=== PATIENT | male | born 1975 | race Caucasian/White ===

== ENCOUNTER → 2017-03-12 | Outpatient (CLI) | payer MEDICARE ==
[~2017-03-12] MED LIST: ADVAIR 500/501 DISK IH; LOTREL 10/21 CAPSULE PO; ULTRAM50 MG PO; VENTOLIN HFA18 GM IH
== END ==
LOC: PICC 09:00
DX: B99.9 Unspecified infectious disease (principal)
CPT/HCPCS: C1753

== ENCOUNTER 2018-03-17 17:38 | Inpatient (IN) | payer OTHER ==
[~2018-03-17] VITALS: Ht 180.3 cm; Wt 129.7 kg
[2018-03-17 18:33] LABS: HEMATOCRIT 48.4 % (38.0-50.0); HEMOGLOBIN 14.7 G/DL (12.5-16.6); MCH 24.4 PG (29.0-34.0); MCHC 30.4 G/DL (30.0-36.0); MCV 80.3 FL (86-99); PLATELET COUNT 475 K/uL (156-360); RBC DIS.WIDTH-SD 43.1 % (39-53); RED BLOOD COUNT 6.03 M/uL (4.00-5.50); WHITE BLOOD COUNT 12.4 K/uL (4.1-10.2)
[2018-03-17 18:41] LABS: ALBUMIN 4.3 g/dL (3.2-4.8)
[2018-03-17 18:42] LABS: CHLORIDE 104 mEq/L (99-109); POTASSIUM 4.3 mEq/L (3.7-5.4); SODIUM 138 mEq/L (136-147)
[2018-03-17 18:44] LABS: GLUCOSE 96 mg/dL (70-99); TOTAL PROTEIN 8.1 g/dL (6.4-8.3)
[2018-03-17 18:46] LABS: TOTAL BILIRUBIN 0.3 mg/dL (0.0-1.0)
[2018-03-17 18:47] LABS: ALKALINE PHOSPHATASE 102 IU/L (3-129)
[2018-03-17 18:48] LABS: GFR ESTIMATE (CALCULATED) > 59 mL/min/ (58.99-99999)
[2018-03-17 18:49] LABS: AST (GOT) 23 IU/L (2-34); UREA NITROGEN (BUN) 15 mg/dL (9-23)
[2018-03-17 18:51] LABS: ALT (GPT) 23 IU/L (3-49)
[2018-03-17 19:01] LABS: APPEARANCE CLEAR ((CLEAR)); BILIRUBIN NEGATIVE; BLOOD NEGATIVE; COLOR YELLOW ((YELLOW)); GLUCOSE (STRIP) NEGATIVE; KETONES 5; LEUKOCYTES NEGATIVE; NITRITE NEGATIVE; PROTEIN (STRIP) 30; SPECIFIC GRAVITY 1.026 (1.000-1.030); UCUL ADDED? NO; UROBILINOGEN 0.2 MG/DL (0.2-1.0)
[2018-03-17 20:58] LABS: LIPASE 237 U/L (1.0-51.0)
[2018-03-17 21:49] LABS: EOSINOPHIL (%) 3.5 % (0-5); LYMPHOCYTE (%) 27.8 % (15-42); NEUTROPHIL (%) 60.3 % (45-76)
[2018-03-17 21:50] LABS: BASOPHIL (%) 0.8 % (0-1); IMMATURE GRANULOCYTE (%) 0.3 % (0.0-0.7); MONOCYTE (%) 7.3 % (3-12)
[2018-03-17 21:52] LABS: LYMPHOCYTE COUNT 3.4 K/uL (1.0-2.8)
[2018-03-17 21:53] LABS: BASOPHIL COUNT 0.1 K/uL (0-0.1); EOSINOPHIL COUNT 0.4 K/uL (0-0.3); MONOCYTE COUNT 0.9 K/uL (0-0.8); NEUTROPHIL COUNT 7.4 K/uL (1.8-6.4)
[2018-03-18] MEDS ORDERED: LYRICA75 MG PO (01:18)
[2018-03-18] MEDS ORDERED: AMLODIPINE BESY10 MG PO (01:18)
[2018-03-18] MEDS ORDERED: SERTRALINE HCL100 MG PO (01:19)
[2018-03-18] MEDS ORDERED: LORAZEPAM1 MG PO (01:21)
[2018-03-18] MEDS ORDERED: METOPROLOL TART25 MG PO (01:22)
[2018-03-18] MEDS ORDERED: OXYCODONE-APAP1 EACH PO (01:22)
[2018-03-18] MEDS ORDERED: ASMANEX HFA13 GM IH (01:22)
[2018-03-18] MEDS ORDERED: LO-DOSE ASPIRIN81 M2 PO (01:23)
[2018-03-18] MEDS ORDERED: MEN'S MULTI-VI1 EACH PO (01:24)
[2018-03-18 07:15] LABS: BASOPHIL (%) 0.9 % (0-1); BASOPHIL COUNT 0.1 K/uL (0-0.1); EOSINOPHIL (%) 5.8 % (0-5); EOSINOPHIL COUNT 0.5 K/uL (0-0.3); HEMATOCRIT 45.7 % (38.0-50.0); IMMATURE GRANULOCYTE (%) 0.5 % (0.0-0.7); LYMPHOCYTE (%) 33.5 % (15-42); LYMPHOCYTE COUNT 2.9 K/uL (1.0-2.8); MCH 24.3 PG (29.0-34.0); MCHC 30.6 G/DL (30.0-36.0); MCV 79.3 FL (86-99); MONOCYTE (%) 9.8 % (3-12); MONOCYTE COUNT 0.8 K/uL (0-0.8); NEUTROPHIL (%) 49.5 % (45-76); NEUTROPHIL COUNT 4.2 K/uL (1.8-6.4); RBC DIS.WIDTH-CV 15.1 % (11.8-14.6); RBC DIS.WIDTH-SD 43.3 % (39-53); RED BLOOD COUNT 5.76 M/uL (4.00-5.50); WHITE BLOOD COUNT 8.5 K/uL (4.1-10.2)
[2018-03-18 08:06] LABS: PLAT.SUFFICIENCY ADEQUATE; PLATELET COUNT 211 K/uL (156-360)
[2018-03-18 08:08] LABS: CHLORIDE 107 MEQ/L (99-109); GFR ESTIMATE (CALCULATED) > 59 mL/min/ (58.99-99999); GLUCOSE 97 mg/dL (70-99); POTASSIUM 4.1 MEQ/L (3.7-5.4); SODIUM 138 MEQ/L (136-147); UREA NITROGEN (BUN) 13 mg/dL (9-23)
[2018-03-18 11:34] LABS: ABS NEUTROPHIL COUNT 7.3; ANISOCYTOSIS NONE SEEN; ATYPICAL LYMPHOCYTE 13.4 %; BAND NEUTROPHILS 0.9 % (0-8.0); BASOPHILS 1.8 %; EOSINOPHIL ABS CT 0.7; EOSINOPHILS 5.3 % (0-5.0); LYMPHOCYTES 15.2 % (15.0-45.0); MONOCYTES 5.4 % (0-9.0); PLAT.SUFFICIENCY ADEQUATE; SMUDGE CELLS 9.8
[2018-03-18 14:20] VITALS: BP 141/94
[2018-03-18 17:19] VITALS: BP 134/74
[2018-03-18 20:40] VITALS: BP 153/87
[2018-03-19 00:53] VITALS: BP 132/69
[2018-03-19 04:38] VITALS: BP 137/87
[2018-03-19 05:40] LABS: BASOPHIL (%) 0.9 % (0-1); BASOPHIL COUNT 0.1 K/uL (0-0.1); EOSINOPHIL (%) 5.4 % (0-5); EOSINOPHIL COUNT 0.4 K/uL (0-0.3); HEMATOCRIT 45.3 % (38.0-50.0); HEMOGLOBIN 13.7 G/DL (12.5-16.6); IMMATURE GRANULOCYTE (%) 0.3 % (0.0-0.7); LYMPHOCYTE (%) 26.6 % (15-42); LYMPHOCYTE COUNT 2.1 K/uL (1.0-2.8); MCH 24.2 PG (29.0-34.0); MCHC 30.2 G/DL (30.0-36.0); MCV 80.2 FL (86-99); MONOCYTE (%) 8.7 % (3-12); MONOCYTE COUNT 0.7 K/uL (0-0.8); NEUTROPHIL (%) 58.1 % (45-76); NEUTROPHIL COUNT 4.6 K/uL (1.8-6.4); RBC DIS.WIDTH-CV 14.6 % (11.8-14.6); RBC DIS.WIDTH-SD 43.1 % (39-53); RED BLOOD COUNT 5.65 M/uL (4.00-5.50); WHITE BLOOD COUNT 7.9 K/uL (4.1-10.2)
[2018-03-19 05:41] LABS: PLATELET COUNT 382 K/uL (156-360)
[2018-03-19 07:06] VITALS: BP 136/78
[2018-03-19 11:22] VITALS: BP 157/77
[2018-03-19 16:50] VITALS: BP 118/59
[2018-03-19 20:00] VITALS: BP 175/94
[2018-03-20] VITALS: BP 123/69
[2018-03-20 07:50] VITALS: BP 124/61
[2018-03-20 07:52] LABS: HEMATOCRIT 47.8 % (38.0-50.0); HEMOGLOBIN 14.3 G/DL (12.5-16.6); MCH 23.8 PG (29.0-34.0); MCHC 29.9 G/DL (30.0-36.0); MCV 79.7 FL (86-99); PLATELET COUNT 415 K/uL (156-360); RBC DIS.WIDTH-CV 14.7 % (11.8-14.6); RBC DIS.WIDTH-SD 42.8 % (39-53); WHITE BLOOD COUNT 6.2 K/uL (4.1-10.2)
[2018-03-20] MEDS ORDERED: SUCRALFATE1 GM PO (11:20)
[2018-03-20] MEDS ORDERED: PROTONIX40 MG PO (11:20)
== END 2018-03-20 12:07 | disposition home or self-care (01) | DRG 383 ==
LOC: EME 17:38 → EDOF 03-18 01:03 → 5SOUTH 03-18 01:03 → ENRESERV 03-18 01:06 → 5SOUTH 03-18 14:11 → ENPENDDIS 03-20 11:37 → 5SOUTH 03-20 12:07
PROVIDERS: Hospitalist; Internal Medicine Gastroenterology; Physician Assistant; Student in an Organized Health Care Education/Training Program
PROC: 0DB68ZX Excision of Stomach, Via Natural or Artificial Opening Endoscopic, Diagnostic (ICD-10-PCS; principal; 2018-03-18)
DX: K25.9 Gastric ulcer, unspecified as acute or chronic, without hemorrhage or perforation (principal); K85.90 Acute pancreatitis without necrosis or infection, unspecified; K22.10 Ulcer of esophagus without bleeding; G47.33 Obstructive sleep apnea (adult) (pediatric); L89.154 Pressure ulcer of sacral region, stage 4; T81.89XA Other complications of procedures, not elsewhere classified, initial encounter; Y83.5 Amputation of limb(s) as the cause of abnormal reaction of the patient, or of later complication, without mention of misadventure at the time of the procedure; F17.220 Nicotine dependence, chewing tobacco, uncomplicated; F32.9 Major depressive disorder, single episode, unspecified; F41.9 Anxiety disorder, unspecified; E66.9 Obesity, unspecified; Z68.39 Body mass index [BMI] 39.0-39.9, adult; Z86.718 Personal history of other venous thrombosis and embolism; I10 Essential (primary) hypertension; Z89.611 Acquired absence of right leg above knee; J45.909 Unspecified asthma, uncomplicated; K59.00 Constipation, unspecified
CPT/HCPCS: 74177; 80048; 80053; 81003; 82941 90; 83605; 83690; 85007; 85025; 85027; 93971; 94799; 99281; 99285; C9113; J1170; J1885; J2405; J3010; J7030